=== PATIENT | female | born 1985 | race African-American/Black ===

== ENCOUNTER 2016-05-28 13:28 | Emergency (ER) | payer OTHER ==
[~2016-05-28] VITALS: Ht 180.3 cm; Wt 84.4 kg
[~2016-05-28 13:28] MED LIST: ACET-704 PO; IBUP-1060 PO; PNV1TABL25 PO
[2016-05-28 13:35] VITALS: BP 118/67
[2016-05-28 14:10] LABS: BILIRUBIN,URINE NEGATIVE (NEG); GLUCOSE,URINE NEGATIVE (NEG); NITRITE,URINE NEGATIVE (NEG); PROTEIN,URINE NEGATIVE (NEG-TRACE); UROBILINOGEN,URINE 0.2 mg/dL (0.2 mg/dL)
[2016-05-28 14:29] LABS: BACTERIA,URINE MOD /HPF (0-FEW); RBC,URINE 0 /HPF (0-2); SQUAMOUS EPITHELIAL CELL,UR MOD /LPF
--- NOTE | 2016-05-28 14:44 | ED.ADGEN ---
Past Medical History Past Medical History: No Pertinent History Past Surgical History: Other Additional Past Surgical Histo: R ear Alcohol Use: Occasionally Drug Use: None Adult General Chief Complaint Chief Complaint: ABDOMINAL PAIN HPI HPI Patient is a 31 year old woman, history of an IUD that was placed 2 years ago, who presents to the emergency department with complaint of vaginal spotting for the past 2 days, and pain from her IUD. Patient states that she feels as though her strings are "getting shorter". She states she's been having vaginal spotting , small amounts of bright red blood per the past 2 days. Denies any discharge or drainage. Denies any current for STI exposures, any injuries. Is having very mild abdominal cramping at times. Denies any pain with urination. No frequency or urgency, no nausea or vomiting, no flank or back pain. 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 Last menstrual cycle was 2 weeks ago, states she does not usually have vaginal bleeding except for during her menstrual cycle, states small spots of blood noted on toilet paper, no passage of clots or fluid. Review of Systems Review of Systems Constitutional: Denies fever or chills. [] Eyes: Denies change in visual acuity. [] HENT: Denies nasal congestion or sore throat. [] Respiratory: Denies cough or shortness of breath. [] Cardiovascular: Denies chest pain or edema. [] GI: Denies nausea, vomiting, bloody stools or diarrhea. [] Mild pelvic cramping. : Denies dysuria. [] Vaginal spotting. Musculoskeletal: Denies back pain or joint pain. [] Integument: Denies rash. [] Neurologic: Denies headache, focal weakness or sensory changes. [] Endocrine: Denies polyuria or polydipsia. [] Lymphatic: Denies swollen glands. [] Psychiatric: Denies depression or anxiety. [] Allergies Allergies Allergies Coded Allergies Type Severity Reaction Last Updated Verified No Known Drug Allergies 01/13/15 No Physical Exam Physical Exam Constitutional: Well developed, well nourished, no acute distress, non-toxic appearance. [] HENT: Normocephalic, atraumatic, bilateral external ears normal, oropharynx moist, no oral exudates, nose normal. [] Eyes: PERRLA, EOMI, conjunctiva normal, no discharge. [] Neck: Normal range of motion, no tenderness, supple, no stridor. [] Cardiovascular:Heart rate regular rhythm, no murmur , S1, S2, rubs or gallops. [ ] Lungs & Thorax: Bilateral breath sounds clear to auscultation, no wheezing, rhonchi, rales. No chest tenderness or crepitus. [] Abdomen: Bowel sounds normal, soft, mild tenderness in suprapubic region, no rebound, rigidity, no guarding, no masses, no pulsatile masses. [] Skin: Warm, dry, no erythema, no rash. [] Back: No tenderness, no CVA tenderness. [] Extremities: No tenderness, no cyanosis, no clubbing, ROM intact, no edema. [] Neurologic: Alert and oriented X 3, normal motor function, normal sensory function, no focal deficits noted. [] Psychologic: Affect normal, judgement normal, mood normal. [] examination: Normal appearing external examination, bimanual exam reveals palpable strings, no CMT, no adnexal masses or tenderness identified. Speculum examination reveals IUD strings extending from the cervix, small amount of mucous discharge with small amounts of red blood, no active bleeding, no clots, no injuries or other abnormalities identified. No evidence of cervicitis or friability. Current Patient Data Vital Signs Vital Signs Date Time Temp Pulse Resp B/P Pulse Ox O2 Delivery O2 Flow Rate FiO2 05/28/16 13:35 97.6 90 18 118/67 100 Room Air 97.6 Lab Values Laboratory Tests Test 05/28/16 13:35 05/28/16 13:58 Urine Collection Type Unknown Urine Color Yellow Urine Clarity Clear Urine pH 6.0 Urine Specific [place] 1.020 Urine Protein Negativemg/dL (NEG-TRACE) Urine Glucose (UA) Negativemg/dL (NEG) Urine Ketones (Stick) Negativemg/dL (NEG) Urine Blood Large (NEG) Urine Nitrite Negative (NEG) Urine Bilirubin Negative (NEG) Urine Urobilinogen Dipstick 0.2mg/dL (0.2 mg/dL) Urine Leukocyte Esterase Negative (NEG) Urine RBC 0/HPF (0-2) Urine WBC 1-4/HPF (0-4) Urine Squamous Epithelial Cells Mod/LPF Urine Bacteria Mod/HPF (0-FEW) Urine Mucus Marked/LPF POC Urine HCG, Qualitative Hcg negative (Negative) Microbiology 05/28/16 Wet Prep - Final, Complete EKG EKG Not indicated. [] Radiology/Procedures Radiology/Procedures Not indicated. [] Course & Med Decision Making Course & Med Decision Making Pertinent Labs and Imaging studies reviewed. (See chart for details) Patient's examination reveals IUD in place, with no evidence of cervicitis. Patient's wet prep reveals bacterial vaginosis, on reevaluation, patient is feeling fine, no further spotting or cramping. I did discuss use of metronidazole patient, oral pills will be administered, she was also given contact information for Dr. Jacob PHYSICAL THERAPY AIDES TEACHER in order to arrange follow-up. Patient voiced understanding and agreement with this plan, along with precautions and medications instructions, discharged home in stable condition with plan as above. Dragon Disclaimer Dragon Disclaimer This electronic medical record was generated, in whole or in part, using a voice recognition dictation system. Departure Impression: Primary Impression: Bacterial vaginosis Disposition: 01 HOME, SELF-CARE Condition: IMPROVED Scripts Metronidazole 500 Mg Tablet1 Tab PO BID #14 TAB Prov:MICKEY RUAON DO 05/28/16 MICKEY RUANO DO May 28, 2016 14:44
[2016-05-28] MEDS ORDERED: METR500T4 PO (14:54)
== END 2016-05-28 14:55 | disposition home or self-care (01) ==
LOC: ER 13:28
DX: N76.0 Acute vaginitis (principal); B96.89 Other specified bacterial agents as the cause of diseases classified elsewhere
CPT/HCPCS: 81001; 81025; 87491; 87591; 99284; Q0111

== ENCOUNTER 2016-09-06 02:10 | Inpatient (IN) | payer OTHER ==
[~2016-09-06] VITALS: Ht 180.3 cm; Wt 90.0 kg
[~2016-09-06 02:10] MED LIST changes: +METR500T4 PO
[2016-09-06 03:05] LABS: BILIRUBIN,URINE NEGATIVE (NEG); GLUCOSE,URINE NEGATIVE (NEG); NITRITE,URINE POSITIVE (NEG); PH,URINE 5.5; PROTEIN,URINE 100 mg/dL (NEG-TRACE); UROBILINOGEN,URINE 0.2 mg/dL (0.2 mg/dL)
[2016-09-06 03:23] LABS: BACTERIA,URINE MODERATE /HPF (0-FEW); RBC,URINE TNTC /HPF (0-2); SQUAMOUS EPITHELIAL CELL,UR MOD /LPF; WBC,URINE TNTC /HPF (0-4)
[2016-09-06 03:24] LABS: NEG OBC UR NEG; POS OBC UR POS
[2016-09-06] MEDS ORDERED: ONDANSETRON PF 4 MG/2 ML VIAL. IV ONE (03:30)
[2016-09-06] MEDS ORDERED: KETOROLAC TROMETHAMINE 30 MG/ML INJ. IV ONE (03:30)
[2016-09-06 03:43] LABS: BASO % 0 % (0-3); EOS % 0 % (0-3); HEMATOCRIT 36.4 % (36.0-47.0); HEMOGLOBIN 12.4 g/dL (12.0-15.5); LYMPH # 1.5 x10^3/uL (1.0-4.8); LYMPH % 14 % (24-48); MEAN CORPUSCULAR HEMOGLOBIN 31 pg (25-35); MEAN CORPUSCULAR HGB CONC 34 g/dL (31-37); MEAN CORPUSCULAR VOLUME 90 fL (79-100); MONO % 6 % (0-9); NEUT % 80 % (31-73); PLATELET COUNT 355 x10^3/uL (140-400); RED BLOOD COUNT 4.04 x10^6/uL (3.50-5.40); RED CELL DISTRIBUTION WIDTH 14.5 % (11.5-14.5); WHITE BLOOD COUNT 11.1 x10^3/uL (4.0-11.0)
[2016-09-06 04:00] LABS: CREATININE 0.7 mg/dL (0.6-1.0); GFR 119.7; POTASSIUM 3.8 mmol/L (3.5-5.1)
--- NOTE | 2016-09-06 04:43 | RAD ---
CT abdomen pelvis without contrast: Reason for examination: Right flank pain for one day with hematuria. Helical images were obtained through the abdomen and pelvis with no intravenous or oral contrast administered. Reconstruction was performed in sagittal and coronal planes. Exposure: One or more of the following individualized dose reduction techniques were utilized for this examination: 1. Automated exposure control 2. Adjustment of the mA and/or kV according to patient size 3. Use of iterative reconstruction technique. The lung bases are clear. The heart size is normal with no pericardial effusion seen. No abnormalities seen of the liver, gallbladder, pancreas, adrenal glands or spleen. The left kidney shows no mass hydronephrosis, renal calculus or obstructive uropathy. The right kidney is rotated and shows no gross hydronephrosis but there is a tiny calculus at the distal ureter measuring approximately 3.9 mm in size. No abnormalities seen at the appendix. The intestinal tract shows no evidence of bowel obstruction. No diverticulosis or diverticulitis is seen. No abnormality seen at the bladder. IUD is present in the uterus. No pelvic masses are evident. No acute bony abnormalities are seen. IMPRESSION: 3.9 mm calculus in the distal right ureter without significant hydronephrosis. Electronically signed by: Aimee Echeverria MD (09/06/2016 4:40 AM)
--- NOTE | 2016-09-06 04:54 | PHYS DOC ---
Past Medical History Past Medical History: No Pertinent History Past Surgical History: No Surgical History, Other Additional Past Surgical Histo: R ear Alcohol Use: Occasionally Drug Use: None Adult General Chief Complaint Chief Complaint: FLANK PAIN HPI HPI Patient is a 31 year old [f__sex] who presents with [] Review of Systems Review of Systems Constitutional: Denies fever or chills [] Eyes: Denies change in visual acuity, redness, or eye pain [] HENT: Denies nasal congestion or sore throat [] Respiratory: Denies cough or shortness of breath [] Cardiovascular: No additional information not addressed in HPI [] GI: Denies abdominal pain, nausea, vomiting, bloody stools or diarrhea [] : Denies dysuria or hematuria [] Musculoskeletal: Denies back pain or joint pain [] Integument: Denies rash or skin lesions [] Neurologic: Denies headache, focal weakness or sensory changes [] Endocrine: Denies polyuria or polydipsia [] Current Medications Current Medications Current Medications Medications (Trade) Dose Ordered Sig/Lizzeth Start Time Stop Time Status Last Admin Dose Admin Ceftriaxone Sodium 50 ml @ 100 mls/hr 1X ONCE 09/06/16 04:00 09/06/16 04:29 DC 09/06/16 04:00 100 MLS/HR Ketorolac Tromethamine (Toradol) 30 mg 1X ONCE 09/06/16 03:30 09/06/16 03:31 DC 09/06/16 04:01 30 MG Ondansetron HCl (Zofran) 4 mg 1X ONCE 09/06/16 03:30 09/06/16 03:31 DC 09/06/16 04:01 4 MG Allergies Allergies Allergies Coded Allergies Type Severity Reaction Last Updated Verified No Known Drug Allergies 01/13/15 No Physical Exam Physical Exam Constitutional: Well developed, well nourished, no acute distress, non-toxic appearance. [] HENT: Normocephalic, atraumatic, bilateral external ears normal, oropharynx moist, no oral exudates, nose normal. [] Eyes: PERRLA, EOMI, conjunctiva normal, no discharge. [] Neck: Normal range of motion, no tenderness, supple, no stridor. [] Cardiovascular:Heart rate regular rhythm, no murmur [] Lungs & Thorax: Bilateral breath sounds clear to auscultation [] Abdomen: Bowel sounds normal, soft, no tenderness, no masses, no pulsatile masses. [] Skin: Warm, dry, no erythema, no rash. [] Back: No tenderness, no CVA tenderness. [] Extremities: No tenderness, no cyanosis, no clubbing, ROM intact, no edema. [] Neurologic: Alert and oriented X 3, normal motor function, normal sensory function, no focal deficits noted. [] Psychologic: Affect normal, judgement normal, mood normal. [] Current Patient Data Vital Signs Vital Signs Date Time Temp Pulse Resp B/P (MAP) Pulse Ox O2 Delivery O2 Flow Rate FiO2 09/06/16 03:05 99.1 88 17 127/90 (102) 98 Room Air 99.1 Lab Values Laboratory Tests Test 09/06/16 02:55 09/06/16 03:25 Urine Collection Type Unknown Urine Color Yellow Urine Clarity Cloudy Urine pH 5.5 Urine Specific [place] 1.020 Urine Protein 100 mg/dL (NEG-TRACE) Urine Glucose (UA) Negative mg/dL (NEG) Urine Ketones (Stick) Negative mg/dL (NEG) Urine Blood Large (NEG) Urine Nitrite Positive (NEG) Urine Bilirubin Negative (NEG) Urine Urobilinogen Dipstick 0.2 mg/dL (0.2 mg/dL) Urine Leukocyte Esterase Large (NEG) Urine RBC Tntc /HPF (0-2) Urine WBC Tntc /HPF (0-4) Urine Squamous Epithelial Cells Mod /LPF Urine Bacteria Moderate /HPF (0-FEW) Urine Mucus Slight /LPF Urine Test Negative (NEG) White Blood Count 11.1 x10^3/uL (4.0-11.0) H Red Blood Count 4.04 x10^6/uL (3.50-5.40) Hemoglobin 12.4 g/dL (12.0-15.5) Hematocrit 36.4 % (36.0-47.0) Mean Corpuscular Volume 90 fL (79-100) Mean Corpuscular Hemoglobin 31 pg (25-35) Mean Corpuscular Hemoglobin Concent 34 g/dL (31-37) Red Cell Distribution Width 14.5 % (11.5-14.5) Platelet Count 355 x10^3/uL (140-400) Neutrophils (%) (Auto) 80 % (31-73) H Lymphocytes (%) (Auto) 14 % (24-48) L Monocytes (%) (Auto) 6 % (0-9) Eosinophils (%) (Auto) 0 % (0-3) Basophils (%) (Auto) 0 % (0-3) Neutrophils # (Auto) 8.9 x10^3uL (1.8-7.7) H Lymphocytes # (Auto) 1.5 x10^3/uL (1.0-4.8) Monocytes # (Auto) 0.6 x10^3/uL (0.0-1.1) Eosinophils # (Auto) 0.0 x10^3/uL (0.0-0.7) Basophils # (Auto) 0.0 x10^3/uL (0.0-0.2) Sodium Level 137 mmol/L (136-145) Potassium Level 3.8 mmol/L (3.5-5.1) Chloride Level 102 mmol/L (98-107) Carbon Dioxide Level 23 mmol/L (21-32) Anion Gap 12 (6-14) Blood Urea Nitrogen 7 mg/dL (7-20) Creatinine 0.7 mg/dL (0.6-1.0) Estimated GFR (Cockcroft-Gault) 119.7 Glucose Level 98 mg/dL (70-99) Calcium Level 9.0 mg/dL (8.5-10.1) Laboratory Tests 09/06/16 03:25 Laboratory Tests 09/06/16 03:25 EKG EKG [] Radiology/Procedures Radiology/Procedures [] Course & Med Decision Making Course & Med Decision Making Pertinent Labs and Imaging studies reviewed. (See chart for details) [] Dragon Disclaimer Dragon Disclaimer This electronic medical record was generated, in whole or in part, using a voice recognition dictation system. Departure Departure Impression: Primary Impression: Ureteral stone Additional Impression: Pyelonephritis Disposition: 09 ADMITTED INPATIENT Admitting Physician: Latrice Park Condition: STABLE Referrals: NO PCP (PCP) Problem Qualifiers LESLIE HERNANDEZ DO Sep 06, 2016 04:53
[2016-09-06] MEDS ORDERED: ONDANSETRON PF 4 MG/2 ML VIAL. IV PRN (05:00)
[2016-09-06 05:30] VITALS: BP 116/81
--- NOTE | 2016-09-06 05:33 | ACF ---
Admission Forms Criteria PYELONEPHRITIS, ACUTE Clinical Indications for Admission to Inpatient Care (Place 'X' for any and all applicable criteria): Admission is indicated for ANY ONE of the following 1,2,3,4,5 [ ]I. Outpatient treatment has failed or is not feasible (eg, multidrug- resistant organism).5 [ ]II. beyond 24 weeks' gestation6 [ ]III. Hemodynamic instability [ ]IV. Immunocompromised state (eg, AIDS, diabetes, sickle cell disease) [X]V. Known renal or urologic abnormalities (eg, indwelling catheter, structural abnormalities, renal calculi, urinary stent, previous urologic surgery) [ ]. Condition that requires drainage procedure, including ANY ONE of the following: [ ]a) Urinary obstruction [ ]b) Pyelitis [ ]c) Pyonephrosis [ ]d) Renal or perinephric abscess [ ]e) Emphysematous pyelonephritis 7 [ ]VII. Inpatient admission required rather than observation care (Also use Pyelonephritis, Acute: Observation Care Criteria as appropriate) because of ANY ONE of the following: [ ]a) High fever or infection requiring inpatient admission as indicated by ANY ONE of [id number] [ ]A. Documented bacteremia [ ]B. Temp>104.9 [id number] (oral) [ ]C. Temp>103.10F (oral) or <96.80F (rectal) that does not respond to all emergency treatment [ ]b) Acute renal failure [ ]c) Other significant finding or clinical condition judged not to be within the scope of observation care [ ]d) IV fluid to replace significant ongoing (eg, for over 24hrs) losses (> 3 L/m2 per day) [ ]e) Other condition,treatment or monitoring requiring inpatient admission The original [facility] content created by [employer] has been revised. The portions of the content which have been revised are identified through the use of italic text or in bold, and [facility] has neither reviewed nor approved the modified material. All other unmodified content is copyright [facility]. Please see references footnoted in the original [facility] edition 2016 Admission Criteria Met?: Yes COOPER SAVAGE Sep 06, 2016 05:33
[2016-09-06 07:00] VITALS: BP 111/71
[2016-09-06] MEDS ORDERED: KETOROLAC TROMETHAMINE 30 MG/ML INJ. IV PRN (08:15)
[2016-09-06] MEDS: fentaNYL PF VIAL 100 MCG/2 ML VIAL IV PRN ×2 (08:22→18:23)
[2016-09-06] MEDS: TAMSULOSIN 0.4 MG CAP.ER.24H. PO SCH (09:59)
[2016-09-06] MEDS: IV NORMAL SALINE 1000ML BAG 1,000 ML IV SCH ×2 (09:59→18:19)
[2016-09-06 11:00] VITALS: BP 102/63
[2016-09-06 15:00] VITALS: BP 102/55
[2016-09-06 19:00] VITALS: BP 118/74
--- NOTE | 2016-09-06 19:00 | HP ---
ADMIT DATE: 09/06/2016 CHIEF COMPLAINT: Flank pain. HISTORY OF PRESENT ILLNESS: The patient is a pleasant 31-year-old female who presents with flank pain. We did a CAT scan. She has got kidney stones. She rates her symptoms as 7/10. She has associated weakness and nausea. We are going to admit the patient, give her narcotics, fluids and consult Dr. Patel. PAST MEDICAL HISTORY: Benign. ALLERGIES: None. FAMILY HISTORY: Renal stones. SOCIAL HISTORY: She does not drink, smoke or take drugs. MEDICATIONS: Reviewed, please refer to the MRAD. REVIEW OF SYSTEMS: GENERAL: No history of weight change, weakness or fevers. SKIN: No bruising, hair changes or rashes. EYES: No blurred, double or loss of vision. NOSE AND THROAT: No history of nosebleeds, hoarseness or sore throat. HEART: No history of palpitations, chest pain or shortness of breath on exertion. LUNGS: Denies cough, hemoptysis, wheezing or shortness of breath. GASTROINTESTINAL: The patient complains of abdominal pain, flank pain and nausea. GENITOURINARY: No history of frequency, urgency, hesitancy or nocturia. NEUROLOGIC: Denies history of numbness, tingling, tremor or weakness. PSYCHIATRIC: No history of panic, anxiety or depression. ENDOCRINE: No history of heat or cold intolerance, polyuria or polydipsia. EXTREMITIES: Denies muscle weakness, joint pain, pain on walking or stiffness. PHYSICAL EXAMINATION: VITAL SIGNS: Temperature afebrile, pulse 68, respirations 18, blood pressure 144/90. GENERAL: She is alert, cooperative, complaining of pain. HEART: Normal S1, S2. LUNGS: Clear. ABDOMEN: Soft and tender. EXTREMITIES: Trace edema. SKIN: No rashes. PSYCHIATRIC: Stable. VASCULAR: Good capillary refill. ENDOCRINE: No thyromegaly. LYMPHATICS: No cervical nodes were noted. HEMATOPOIETIC: No bruising. LABORATORY DATA: White count 11, hemoglobin 12, platelets 355. Electrolytes normal. Urinalysis shows positive for nitrites, too numerous to count white cells and red blood cells, moderate bacteria, cloudy appearance. ASSESSMENT AND PLAN: Renal stone and pyelonephritis. The patient has been admitted. We will consult Dr. Patel. IV antibiotics, IV fluids, p.r.n. narcotics. Continue home medicines. ADELIA MORRISON DO DR: AURY/dawn JOB#: [id number] / [id number]
[2016-09-06 23:00] VITALS: BP 122/79
--- NOTE | 2016-09-07 00:18 | CONS ---
DATE OF CONSULTATION: 09/06/2016 CHIEF COMPLAINT: Acute right flank pain. HISTORY OF PRESENT ILLNESS: This is a 31-year-old -[place] female that was admitted through the Emergency Room with acute right flank pain. A noncontrast CT scan revealed a 4 mm calculus in the distal right ureter. There was no significant hydronephrosis. The patient denies a previous history of kidney stones. She states that she had been at the [facility] and it was after she left the [facility] that she began to experience this right flank pain. ALLERGIES: No known drug allergies. PAST MEDICAL HISTORY: The patient denies any chronic illnesses. PAST SURGICAL HISTORY: She has had no major abdominal surgeries. REVIEW OF SYSTEMS: A 14-point review of systems performed, most significant is her HPI. PHYSICAL EXAMINATION: VITAL SIGNS: The patient's vitals are stable. GENERAL DESCRIPTION: A 31-year-old -[place] female. She is alert and oriented, in no acute distress at this time. ABDOMEN: Soft, nontender. No palpable abdominal masses. She has some mild right flank discomfort to deep palpation, the left flank was normal. No suprapubic tenderness. EXTREMITIES: Negative for cyanosis or edema. LABORATORY STUDIES: The patient's white blood cell count was slightly elevated at 11.1, hemoglobin 12.4, hematocrit 36.4. Metabolic profile was normal. BUN 7, creatinine 0.7. Urinalysis; ramo-colored urine, large dipstick blood, positive nitrite, too numerous to count red blood cells, too numerous to count white blood cells, moderate bacteria. Culture is pending at this time. X-RAY STUDIES: A noncontrast CT scan was performed. This revealed a 3.9 mm calculus in the distal right ureter without significant hydronephrosis. IMPRESSION: 1. Distal right ureteral calculus. 2. Right ureteral colic. 3. Minimal hydronephrosis. 4. Urinary tract infection. SUGGESTIONS: 1. Treat urinary tract infection aggressively with IV antibiotics. 2. The patient has been placed on IV fluids. 3. She was placed on Flomax earlier today. 4. We will strain the urine and try to have her pass this calculus with medical expulsive therapy. FAZAL RAMAN DO DR: ELIF/dawn JOB#: [id number] / [id number]
[2016-09-07] MEDS: fentaNYL PF VIAL 100 MCG/2 ML VIAL IV PRN ×2 (01:08→07:54)
[2016-09-07] MEDS: IV NORMAL SALINE 1000ML BAG 1,000 ML IV SCH ×2 (01:08→07:54)
[2016-09-07 04:58] LABS: BASO % 0 % (0-3); EOS % 1 % (0-3); HEMATOCRIT 31.6 % (36.0-47.0); HEMOGLOBIN 10.7 g/dL (12.0-15.5); LYMPH # 3.3 x10^3/uL (1.0-4.8); LYMPH % 43 % (24-48); MEAN CORPUSCULAR HEMOGLOBIN 31 pg (25-35); MEAN CORPUSCULAR HGB CONC 34 g/dL (31-37); MEAN CORPUSCULAR VOLUME 91 fL (79-100); MONO % 6 % (0-9); NEUT % 50 % (31-73); PLATELET COUNT 295 x10^3/uL (140-400); RED BLOOD COUNT 3.47 x10^6/uL (3.50-5.40); RED CELL DISTRIBUTION WIDTH 14.8 % (11.5-14.5); WHITE BLOOD COUNT 7.7 x10^3/uL (4.0-11.0)
[2016-09-07 05:07] LABS: CALCIUM 8.3 mg/dL (8.5-10.1); CREATININE 0.7 mg/dL (0.6-1.0); GFR 119.7; POTASSIUM 3.6 mmol/L (3.5-5.1)
[2016-09-07 07:00] VITALS: BP 118/87
[2016-09-07] MEDS: TAMSULOSIN 0.4 MG CAP.ER.24H. PO SCH (07:54)
[2016-09-07] MEDS ORDERED: oxyCODONE/APAP 5/325 1 TAB TABLET PO PRN (09:45)
[2016-09-07 10:58] VITALS: BP 133/87
--- NOTE | 2016-09-07 12:04 | PDOC ---
PROGRESS NOTES Chief Complaint Chief Complaint Ureterolithiasis R UTI ASSESSMENT AND PLAN: 1. UTI: culture pending. continue empiric ceftriax 2. R ureteral colic: 3.4 mm stone in distal ureter. hopefully will pass w/IVF , flomax. Dr Patel's input appreciated 3. Dispo: potential D/C home later today Vitals Vitals Vital Signs Date Time Temp Pulse Resp B/P (MAP) Pulse Ox O2 Delivery O2 Flow Rate FiO2 09/07/16 10:58 97.3 64 17 133/87 (102) 95 Room Air 97.3 Physical Exam General: Alert, Oriented X3, Cooperative, No acute distress Heart: Regular rate Lungs: Clear Abdomen: Normal bowel sounds, No tenderness, Other (no flank pain with percussion) Extremities: No edema Skin: No rashes Labs LABS Laboratory Tests Test 09/07/16 04:14 White Blood Count 7.7 x10^3/uL (4.0-11.0) Red Blood Count 3.47 x10^6/uL (3.50-5.40) Hemoglobin 10.7 g/dL (12.0-15.5) Hematocrit 31.6 % (36.0-47.0) Mean Corpuscular Volume 91 fL (79-100) Mean Corpuscular Hemoglobin 31 pg (25-35) Mean Corpuscular Hemoglobin Concent 34 g/dL (31-37) Red Cell Distribution Width 14.8 % (11.5-14.5) Platelet Count 295 x10^3/uL (140-400) Neutrophils (%) (Auto) 50 % (31-73) Lymphocytes (%) (Auto) 43 % (24-48) Monocytes (%) (Auto) 6 % (0-9) Eosinophils (%) (Auto) 1 % (0-3) Basophils (%) (Auto) 0 % (0-3) Neutrophils # (Auto) 3.8 x10^3uL (1.8-7.7) Lymphocytes # (Auto) 3.3 x10^3/uL (1.0-4.8) Monocytes # (Auto) 0.5 x10^3/uL (0.0-1.1) Eosinophils # (Auto) 0.1 x10^3/uL (0.0-0.7) Basophils # (Auto) 0.0 x10^3/uL (0.0-0.2) Sodium Level 139 mmol/L (136-145) Potassium Level 3.6 mmol/L (3.5-5.1) Chloride Level 107 mmol/L (98-107) Carbon Dioxide Level 24 mmol/L (21-32) Anion Gap 8 (6-14) Blood Urea Nitrogen 10 mg/dL (7-20) Creatinine 0.7 mg/dL (0.6-1.0) Estimated GFR (Cockcroft-Gault) 119.7 Glucose Level 106 mg/dL (70-99) Calcium Level 8.3 mg/dL (8.5-10.1) GISSEL MAN MD Sep 07, 2016 12:04
[2016-09-07] MEDS ORDERED: TAMS0.4C97 PO (13:22)
[2016-09-07] MEDS ORDERED: FERR-26 PO (13:22)
[2016-09-07] MEDS ORDERED: OXYC1TAB7 PO (13:22)
== END 2016-09-07 14:04 | disposition home or self-care (01) | DRG 694 ==
LOC: ER 02:10 → 5 NORTH 04:51
PROVIDERS: ADMIT Internal Medicine; ATTEND Internal Medicine
DX: N20.1 Calculus of ureter (principal); N12 Tubulo-interstitial nephritis, not specified as acute or chronic; N13.30 Unspecified hydronephrosis; Z87.442 Personal history of urinary calculi
CPT/HCPCS: 36415; 74176; 80048; 81001; 81025; 85027; 87086; 96365; 96375; 96376; 99406; J0690; J0696; J1885; J2405; J3010; J7030; 99285-25

== ENCOUNTER 2016-11-24 08:51 | Emergency (ER) | payer OTHER ==
[~2016-11-24] VITALS: Ht 180.3 cm; Wt 81.6 kg
[~2016-11-24 08:51] MED LIST changes: +FERR-26 PO; -METR500T4 PO; +METR500T8 PO; +OXYC1TAB7 PO; +TAMS0.4C97 PO
[2016-11-24 08:57] VITALS: BP 133/80
[2016-11-24] MEDS ORDERED: LIDOCAINE 1% / SOD BICARB 8.4% 20 ML VIAL. IJ ONE (09:30)
[2016-11-24] MEDS ORDERED: DOCU-109 PO (09:53)
[2016-11-24] MEDS ORDERED: HYDR-971 PO (09:53)
--- NOTE | 2016-11-24 09:54 | PHYS DOC ---
Past Medical History Past Medical History: No Pertinent History Past Surgical History: Other Additional Past Surgical Histo: R ear Alcohol Use: Occasionally Drug Use: None Adult General Chief Complaint Chief Complaint: ABSCESS HPI HPI Patient is a 31 year old female who presents emergency department stating that she thinks she has an abscess done by her rectal area. She said for the last 3 weeks. She denies any drainage or discharge coming from the site. She denies any fever chills or nausea or vomiting. She does state that she's been having some issues with constipation. No blood in her stools. She states she is unable to sit without increased pain and discomfort. Review of Systems Review of Systems Constitutional: Denies fever or chills [] Eyes: Denies change in visual acuity, redness, or eye pain [] HENT: Denies nasal congestion or sore throat [] Respiratory: Denies cough or shortness of breath [] Cardiovascular: No additional information not addressed in HPI [] GI: Denies abdominal pain, nausea, vomiting, bloody stools or diarrhea [] : Denies dysuria or hematuria [] Musculoskeletal: Denies back pain or joint pain [] Integument: Denies rash or skin lesions. Complaint of abscess noted the rectal area. Neurologic: Denies headache, focal weakness or sensory changes [] Endocrine: Denies polyuria or polydipsia [] Current Medications Current Medications Current Medications Medications (Trade) Dose Ordered Sig/[facility] Start Time Stop Time Status Last Admin Dose Admin Lidocaine/Sodium Bicarbonate (Buffered Lidocaine 1%) 20 ml 1X ONCE 11/24/16 09:30 11/24/16 09:31 DC Allergies Allergies Allergies Coded Allergies Type Severity Reaction Last Updated Verified No Known Drug Allergies 01/13/15 No Physical Exam Physical Exam Constitutional: Well developed, well nourished, no acute distress, non-toxic appearance. [] HENT: Normocephalic, atraumatic, bilateral external ears normal, oropharynx moist, no oral exudates, nose normal. [] Eyes: PERRLA, EOMI, conjunctiva normal, no discharge. [] Neck: Normal range of motion, no tenderness, supple, no stridor. [] Cardiovascular:Heart rate regular rhythm, no murmur [] Lungs & Thorax: Bilateral breath sounds clear to auscultation [] Skin: Warm, dry, no erythema, no rash. Patient appears to have a thrombosed hemorrhoid at the rectal area. It appears to be very tender and hard. No drainage or discharge noted from the site. Back: No tenderness Extremities: No tenderness, no cyanosis, no clubbing, ROM intact, no edema. [] Neurologic: Alert and oriented X 3, normal motor function, normal sensory function, no focal deficits noted. [] Psychologic: Affect normal, judgement normal, mood normal. [] Current Patient Data Vital Signs Vital Signs Date Time Temp Pulse Resp B/P (MAP) Pulse Ox O2 Delivery O2 Flow Rate FiO2 11/24/16 08:57 97.9 92 16 98 Room Air 97.9 Lab Values Laboratory Tests Test 11/24/16 08:11 POC Urine HCG, Qualitative Hcg negative (Negative) EKG EKG [] Radiology/Procedures Radiology/Procedures [] Course & Med Decision Making Course & Med Decision Making Pertinent Labs and Imaging studies reviewed. (See chart for details) Patient was encouraged to use sitz baths 4 times a day. She'll be provided with hydrocodone for severe pain and discomfort. She was instructed this medication will cause drowsiness as well as constipation. Recommended MiraLAX over-the- counter. She'll be provided Colace also help facilitate softer bowel movements. Patient was encouraged to follow-up the primary care physician in the next week if she is still having pain and discomfort. Signs and symptoms to return back to emergency department as been provided. Patient agrees with discharge instructions treatment regimens follow-up recommendations. All questions and concerns was answered at patient's bedside. [] Dragon Disclaimer Dragon Disclaimer This electronic medical record was generated, in whole or in part, using a voice recognition dictation system. Departure Departure Impression: Primary Impression: Thrombosed external hemorrhoid Disposition: HOME, SELF-CARE Condition: STABLE Referrals: NO PCP (PCP) Patient Instructions: Hemorrhoids, [id number] Additional Instructions: Activity as tolerated. Warm sitz baths 4 times a day. Ibuprofen may also help with inflammation and pain. Hydrocodone for severe pain and discomfort. This medication will cause drowsiness do not take any be alert and oriented. MiraLAX [id number] to help facilitate soft stools. Colace will also help facilitate soft stools. Follow-up primary care physician in the next week. Return back to emergency department sign symptoms of become worse. Scripts Docusate Sodium (COLACE) 100 Mg Capsule 1 CAP PO BID, #30 CAP Prov: RYAN ESPANA APRN 11/24/16 Hydrocodone/Apap 5-325 (NORCO 5-325 TABLET) 1 Each Tablet 1 TAB PO PRN Q6HRS Y for PAIN, #20 TAB 0 Refills Prov: RYAN ESPANA APRN 11/24/16 Incision and Drainage Incision and Drainage : Site: rectal area Blade Size: 11 I & D Procedure: betadine prep Progress 1% lidocaine buffered 3 mL was injected into the area. Site was cleaned with Betadine. #11 blade was used to incise the area with 2 large clots noted upon manipulating the area. RYAN ESPANA APRN Nov 24, 2016 09:54
== END 2016-11-24 10:00 | disposition home or self-care (01) ==
LOC: ER 08:51
DX: K64.5 Perianal venous thrombosis (principal); K59.00 Constipation, unspecified
CPT/HCPCS: 46083; 81025; 99284-25

== ENCOUNTER 2018-08-31 08:52 | Emergency (ER) | payer OTHER ==
[~2018-08-31] VITALS: Ht 180.3 cm; Wt 72.6 kg
[~2018-08-31 08:52] MED LIST changes: +DOCU-109 PO; -FERR-26 PO; +FERR325T14 PO; +HYDR-3164 PO; +METR-34 PO; -METR500T8 PO
[2018-08-31 08:57] VITALS: BP 127/84
--- NOTE | 2018-08-31 09:02 | PHYS DOC ---
Past Medical History Past Medical History: No Pertinent History Past Surgical History: Other Additional Past Surgical Histo: R ear Alcohol Use: Occasionally Drug Use: None Adult General Chief Complaint Chief Complaint: HAND PROBLEM HPI HPI Patient is a 33 year old female who presents with mild right hand pain that began 4 days ago when she woke up. Patient denies any known injury, patient states the pain is worse on the middle finger and ring fingers during flexion. Patient denies anything specifically relieving the pain. Review of Systems Review of Systems Constitutional: Denies fever or chills [] Musculoskeletal: Reports right hand pain Integument: Denies rash or skin lesions [] Neurologic: Denies headache, focal weakness or sensory changes [] All other systems were reviewed and found to be within normal limits, except as documented in this note. Allergies Allergies Allergies Coded Allergies Type Severity Reaction Last Updated Verified No Known Drug Allergies 01/13/15 No Physical Exam Physical Exam Constitutional: Well developed, well nourished, no acute distress, non-toxic appearance. [] Skin: Warm, dry, no erythema, no rash. [] Back: No tenderness, no CVA tenderness. [] Extremities: Right hand with no obvious deformity. No tenderness to the exam, full range of motion to the right hand and fingers. Adequate radial, medial, ulnar sensation to the right hand and fingers. +2 right radial pulse. Cap refill less than 2 seconds the right fingers. Neurologic: Alert and oriented X 3, normal motor function, normal sensory function, no focal deficits noted. [] Psychologic: Affect normal, judgement normal, mood normal. [] Current Patient Data Vital Signs Vital Signs Date Time Temp Pulse Resp B/P (MAP) Pulse Ox O2 Delivery O2 Flow Rate FiO2 08/31/18 08:57 97.8 57 16 127/84 (98) 97 Room Air 97.8 EKG EKG [] Radiology/Procedures Radiology/Procedures []PROCEDURE: HAND RIGHT 3V HAND RIGHT 3V History: Pain, no injury, pain in the metacarpal region and middle finger Comparison: None. Findings: 3 views of the right hand are submitted. No bone destruction, acute fracture, or dislocation is identified. Impression: 1. No acute radiographic abnormality is identified. Electronically signed by: Randa Castillo MD (08/31/2018 9:31 AM) [id number] DICTATED and SIGNED BY: RANDA CASTILLO MD DATE: 08/31/18 0931 Course & Med Decision Making Course & Med Decision Making Pertinent Labs and Imaging studies reviewed. (See chart for details) This is a 33-year-old female patient presented to the ED today complaining of right hand pain that began 4 days ago, no known injury. Right hand x-rays interpreted by radiologist are negative for any acute findings. Patient was asked to ice and elevate the extremity. Take [id number] pain relievers as needed. Provided orthopedic doctor for follow-up. Dragon Disclaimer Dragon Disclaimer This electronic medical record was generated, in whole or in part, using a voice recognition dictation system. Departure Departure Impression: Primary Impression: Right hand pain Disposition: 01 HOME, SELF-CARE Condition: STABLE Referrals: NO PCP (PCP) RACHEAL BRANHAM II, MD Follow-up in one week Patient Instructions: Joint Sprain Additional Instructions: You were evaluated in the emergency room for right hand pain, your right hand x- rays are negative for any acute findings. Try to ice and elevate the extremity. Take [id number] pain relievers as needed. We provided you an orthopedic doctor, contact them in 1-2 weeks if pain persist. KASEY HAMILTON APRN August 31, 2018 09:02
--- NOTE | 2018-08-31 09:34 | RAD ---
HAND RIGHT 3V History: Pain, no injury, pain in the metacarpal region and middle finger Comparison: None. Findings: 3 views of the right hand are submitted. No bone destruction, acute fracture, or dislocation is identified. Impression: 1. No acute radiographic abnormality is identified. Electronically signed by: Mohsen Obregon MD (08/31/2018 9:31 AM) [id number]
== END 2018-08-31 09:53 | disposition home or self-care (01) ==
LOC: ER 08:52
DX: M79.641 Pain in right hand (principal)
CPT/HCPCS: 73130; 99284

== ENCOUNTER 2019-06-27 13:19 | Emergency (ER) | payer MEDICAID, OTHER ==
[~2019-06-27] VITALS: Ht 180.3 cm; Wt 80.0 kg
[2019-06-27 13:45] VITALS: BP 138/69
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
[2019-06-27] MEDS ORDERED: AMOX500C PO (14:53)
[2019-06-27] MEDS ORDERED: ACET-704 PO (14:53)
== END 2019-06-27 14:55 | disposition home or self-care (01) ==
LOC: ER 13:19
DX: S00.83XA Contusion of other part of head, initial encounter (principal); S00.511A Abrasion of lip, initial encounter; F17.200 Nicotine dependence, unspecified, uncomplicated; V49.9XXA Car occupant (driver) (passenger) injured in unspecified traffic accident, initial encounter; Y92.488 Other paved roadways as the place of occurrence of the external cause; Y93.89 Activity, other specified; Y99.8 Other external cause status
CPT/HCPCS: 70450; 70486; 99285-25

== ENCOUNTER 2020-02-16 03:33 | Emergency (ER) | payer MEDICAID ==
[~2020-02-16] VITALS: Ht 177.8 cm; Wt 79.5 kg
[~2020-02-16 03:33] MED LIST changes: +AMOX500C PO
[2020-02-16] MEDS ORDERED: LIDOCAINE 1% Multi-Dose 20 ML VIAL. INJ ONE (03:45)
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
[2020-02-16] MEDS ORDERED: PANTOPRAZOLE IV PUSH 40 MG VIAL. IVP ONE (04:15)
[2020-02-16] MEDS ORDERED: FAMOTIDINE 20 MG/2 ML VIAL IVP ONE (04:15)
[2020-02-16] MEDS ORDERED: METOCLOPRAMIDE HCL 10 MG/2 ML VIAL. IVP ONE (04:15)
[2020-02-16] MEDS ORDERED: MORPHINE SULFATE 4 MG/ML VIAL. IV ONE (04:15)
[2020-02-16] MEDS ORDERED: DICYCLOMINE 20 MG/2 ML VIAL. IM ONE (04:15)
[2020-02-16 04:20] VITALS: BP 119/76
== END 2020-02-16 04:25 | disposition home or self-care (01) ==
LOC: ER 03:33
DX: S01.111A Laceration without foreign body of right eyelid and periocular area, initial encounter (principal); F17.200 Nicotine dependence, unspecified, uncomplicated; W22.8XXA Striking against or struck by other objects, initial encounter; Y93.89 Activity, other specified; Y92.89 Other specified places as the place of occurrence of the external cause; Y99.8 Other external cause status
CPT/HCPCS: 12011; 99282; J3490

== ENCOUNTER 2020-02-22 14:22 | Emergency (ER) | payer MEDICAID ==
[~2020-02-22] VITALS: Ht 180.3 cm; Wt 70.0 kg
[2020-02-22 14:36] VITALS: BP 122/62
--- NOTE | 2020-02-22 14:47 | ED.ADGEN ---
Past Medical History Past Medical History: No Pertinent History Past Surgical History: No Surgical History Additional Past Surgical Histo: R ear Smoking Status: Current Every Day Smoker Alcohol Use: Occasionally Drug Use: None General Adult EDM: Chief Complaint: SUTURE/STAPLE REMOVAL HPI: HPI: Patient is a 34 year [id number] female presenting for removal of 3 sutures placed on her right eyebrow 7 days ago. No complications with healing Review of Systems: Review of Systems: Constitutional: Denies fever or chills. [] Eyes: Denies change in visual acuity. [] HENT: Denies nasal congestion or sore throat. [] Respiratory: Denies cough or shortness of breath. [] Cardiovascular: Denies chest pain or edema. [] GI: Denies abdominal pain, nausea, vomiting, bloody stools or diarrhea. [] : Denies dysuria. [] Musculoskeletal: Denies back pain or joint pain. [] Integument: Denies rash. [] Neurologic: Denies headache, focal weakness or sensory changes. [] Endocrine: Denies polyuria or polydipsia. [] Lymphatic: Denies swollen glands. [] Psychiatric: Denies depression or anxiety. [] Allergies: Allergies: Allergies Coded Allergies Type Severity Reaction Last Updated Verified No Known Drug Allergies 01/13/15 No Physical Exam: PE: Constitutional: Well developed, well nourished, no acute distress, non-toxic appearance. [] HENT: Normocephalic, atraumatic, bilateral external ears normal, oropharynx moist, no oral exudates, nose normal. [] Eyes: PERRLA, EOMI, conjunctiva normal, no discharge. [] Neck: Normal range of motion, no tenderness, supple, no stridor. [] Cardiovascular:Heart rate regular rhythm, no murmur [] Lungs & Thorax: Bilateral breath sounds clear to auscultation [] Abdomen: Bowel sounds normal, soft, no tenderness, no masses, no pulsatile masses. [] Skin: Warm, dry, no erythema, no rash. [] 3 sutures and right eyebrow, scabbing, no signs of infection Back: No tenderness, no CVA tenderness. [] Extremities: No tenderness, no cyanosis, no clubbing, ROM intact, no edema. [] Neurologic: Alert and oriented X 3, normal motor function, normal sensory function, no focal deficits noted. [] Psychologic: Affect normal, judgement normal, mood normal. [] Current Patient Data: Vital Signs: Vital Signs Date Time Temp Pulse Resp B/P (MAP) Pulse Ox O2 Delivery O2 Flow Rate FiO2 02/22/20 14:36 98.7 83 16 122/62 (82) 99 Room Air 98.7 EKG: EKG: [] Heart Score: Risk Factors: Risk Factors: DM, Current or recent (<one month) smoker, HTN, HLP, family history of CAD, obesity. Risk Scores: Score 0 - 3: 2.5% MACE over next 6 weeks - Discharge Home Score 4 - 6: 20.3% MACE over next 6 weeks - Admit for Clinical Observation Score 7 - 10: 72.7% MACE over next 6 weeks - Early Invasive Strategies Radiology/Procedures: Radiology/Procedures: [] Course & Med Decision Making: Course & Med Decision Making Pertinent Labs and Imaging studies reviewed. (See chart for details) [] Dragon Disclaimer: Dragon Disclaimer: This electronic medical record was generated, in whole or in part, using a voice recognition dictation system. Departure Departure Impression: Primary Impression: Visit for suture removal Disposition: 01 DC HOME SELF CARE/HOMELESS Condition: STABLE Referrals: NO PCP (PCP) Patient Instructions: Scar Minimization CASSANDRA DECKER MD Feb 22, 2020 14:47
== END 2020-02-22 14:51 | disposition home or self-care (01) ==
LOC: ER 14:22
DX: S01.111D Laceration without foreign body of right eyelid and periocular area, subsequent encounter (principal); F17.200 Nicotine dependence, unspecified, uncomplicated; X58.XXXD Exposure to other specified factors, subsequent encounter
CPT/HCPCS: 99281

== ENCOUNTER → 2020-07-23 | Outpatient (CLI) | payer MEDICAID ==
--- NOTE | 2020-07-23 14:08 | KCIC ---
EXAM: Pelvic sonogram. HISTORY: Suprapubic pain. TECHNIQUE: Sonographic imaging of the pelvis was performed. COMPARISON: None. FINDINGS: The uterus is normal in size. The endometrial stripe measures 11 mm in thickness. The ovari es are normal in size and demonstrate normal blood flow. There is no pelvic free fluid. IMPRESSION: 1. Prominent antral stripe likely due to the phase the patient's menstrual cycle. 2. Otherwise, unremarkable pelvic sonogram. Electronically signed by: Chula Santana MD (07/23/2020 2:05 PM) [id number]
== END ==
LOC: KCIC US 12:54
PROVIDERS: ATTEND Nurse Practitioner Gerontology
DX: R10.2 Pelvic and perineal pain (principal)
CPT/HCPCS: 76856

== ENCOUNTER 2020-07-28 03:11 | Emergency (ER) | payer MEDICAID ==
[~2020-07-28] VITALS: Ht 180.3 cm; Wt 72.7 kg
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
[2020-07-28 04:15] VITALS: BP 119/71
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
== END 2020-07-28 04:57 | disposition left against medical advice (07) ==
LOC: ER 03:11
DX: S09.8XXA Other specified injuries of head, initial encounter (principal); R68.84 Jaw pain; F17.200 Nicotine dependence, unspecified, uncomplicated; Z98.890 Other specified postprocedural states; V89.2XXA Person injured in unspecified motor-vehicle accident, traffic, initial encounter; Y93.89 Activity, other specified; Y92.413 State road as the place of occurrence of the external cause; Y99.8 Other external cause status
CPT/HCPCS: 70450; 70486; 72125; 81025; 99285

== ENCOUNTER 2021-02-04 10:51 | Emergency (ER) | payer MEDICAID, OTHER ==
[~2021-02-04] VITALS: Ht 165.1 cm; Wt 59.0 kg
--- NOTE | 2021-02-04 11:24 | PHYS DOC ---
Past Medical History Past Medical History: No Pertinent History Past Surgical History: Other Additional Past Surgical Histo: R ear Smoking Status: Current Every Day Smoker Alcohol Use: Occasionally Drug Use: None General Adult EDM: Chief Complaint: COUGH HPI: HPI: Patient is a 35 year old female who presents with coughing which began last night. She reports that she had a dry cough that kept her up all night. She reports that her throat hurts and her chest hurts from coughing. She reports that she feels like she is having difficulty taking a deep breath. She denies any actual dyspnea. She denies hemoptysis or sputum production. She denies fevers or chills patient has headache. She denies muscle aches or fatigue. She denies rhinorrhea or congestion. She denies nausea vomiting, abdominal pain, diarrhea, denies urinary symptoms. Denies rash. Denies known sick contacts. Denies recent travel history. She is not vaccinated against COVID-19. She is extremely argumentative, hostile, verbally abusive to me and the nursing staff. She is angry that her boyfriend was not allowed to come back with her as a visitor, in spite of the staff kindly explained to her that anyone with respiratory symptoms or concern for possible COVID-19 infection is not allowed to have visitors back with them. She immediately starts arguing that she does not believe that she has Covid. She states that "I don't believe in COVID." She also states that "COVID is against my tenriism." She angrily refuses to have a nasal swab performed for COVID-19 or for influenza testing. She angrily states that "I'll just to to [facility]." She is very uncooperative, hostile, argumentative, refuses to engage in any, or meaningful discussion with me or the nursing staff. Review of Systems: Review of Systems: Constitutional: Denies fever or chills. [] Eyes: Denies change in visual acuity. [] HENT: Denies nasal congestion. Reports sore throat with coughing. Respiratory: Reports dry cough. Denies dyspnea. Denies wheezing. Cardiovascular: Denies chest pain or edema. [] GI: Denies abdominal pain, nausea, vomiting, constipation or diarrhea : Denies urinary symptoms. Musculoskeletal: Denies back pain or joint pain. [] Integument: Denies rash. [] Neurologic: Denies headache, focal weakness or sensory changes. [] Psychiatric: Angry, hostile, mood disturbance [] Heart Score: C/O Chest Pain: No Risk Factors: Risk Factors: DM, Current or recent (<one month) smoker, HTN, HLP, family history of CAD, obesity. Risk Scores: Score 0 - 3: 2.5% MACE over next 6 weeks - Discharge Home Score 4 - 6: 20.3% MACE over next 6 weeks - Admit for Clinical Observation Score 7 - 10: 72.7% MACE over next 6 weeks - Early Invasive Strategies Allergies: Allergies: Allergies Coded Allergies Type Severity Reaction Last Updated Verified No Known Drug Allergies 01/13/15 No Physical Exam: PE: Constitutional: Well developed, well nourished, no acute distress, non-toxic appearance. [] HENT: Normocephalic, atraumatic, oropharynx is patent, clear, no exudate or erythema. Mucous membranes are moist. TMs are clear bilaterally. Nares patent without rhinorrhea or epistaxis. Eyes: PERRL, conjunctiva normal, no discharge. Sclera are clear and anicteric. Neck: Normal range of motion, no tenderness, supple, no stridor. No thyromegaly, no tenderness, no abnormal adenopathy. No meningismus. Trachea is midline. Cardiovascular: Tachycardic, regular at 101 or 102 initially, heart rate in the 90s after calming down somewhat during exam. +2 radial pulses bilaterally. Lungs & Thorax: Bilateral breath sounds clear to auscultation, no rales, rhonchi or wheezes. No stridor. No evidence of distress. Speaks in loud, full and clear sentences. Skin: Warm, dry, no erythema, no rash. [] Back: No tenderness, no CVA tenderness. [] Extremities: No tenderness, no cyanosis, no clubbing, ROM intact, no edema. No calf tenderness. Neurologic: Alert and oriented X 3, ambulatory with a steady gait, speech is clear and fluent. Psychologic: Hostile, argumentative, agitated. EKG: EKG: [] Radiology/Procedures: Radiology/Procedures: [] Course & Med Decision Making: Course & Med Decision Making I did offer to perform a Covid and influenza swab, as well as chest x-ray. I offered to give her antitussive medications as well. However, I did not notice any coughing during her brief ED stay. She is angry at the notion of a suggestion of ordering a Covid swab. She angrily stammers that she does not believe in Covid, that Covid is against her tenriism, that she knows it is not Covid, and she refuses a swab. She refuses to have any nasopharyngeal swab at all. I explained that she is absolutely free to declined this, but I am offering it, as her symptoms could possibly be related to Covid. I repeatedly asked her if she would consent to a chest x-ray, and she refuses this as well. She called me back into the room two more times after the initial evaluation, and reports that she is angry that I am not ordering all of the tests I had offered her, and when I explained that she had refused, she continues to escalate in her argumentative and hostile behavior. I told her that I am happy to care for her, I am happy to order the recommended exams, but that she needs to participate in her care and she needs to behave more cooperatively in order for us to care for her appropriately. Ultimately, she angrily states that she is going to "report your ass." She asks for my name twice, and I kindly gave her my name, and she reports that she is going to "report" me. I attempted to calm her multiple times, but she continued to escalate with inappropriate and unruly behavior, hostile behavior. She is being disruptive and obstructive to the endeavor of trying to care for her and other patients in the emergency department. She refused to stay for paperwork, he refused to stay for any further exams. I told her that she may return at any point in time for any concerns. She subsequently eloped from the emergency department. She was awake, alert, oriented, ambulatory to steady gait, did not appear to be clinically significantly intoxicated at time of her decision to do so Moses Disclaimer: Moses Disclaimer: This electronic medical record was generated, in whole or in part, using a voice recognition dictation system. Departure Departure Impression: Primary Impression: Cough Additional Impression: Hostile behavior Disposition: LEFT AGAINST MEDICAL ADVICE Condition: STABLE Referrals: LUIS CRUZ MD (PCP) Patient Instructions: Cough, Adult JAMAL ASHBY DO Feb 04, 2021 11:24
== END 2021-02-04 11:45 | disposition left against medical advice (07) ==
LOC: ER 10:51
DX: R05.9 Cough, unspecified (principal); R07.89 Other chest pain; R51.9 Headache, unspecified; F17.200 Nicotine dependence, unspecified, uncomplicated
CPT/HCPCS: 99281